=== PATIENT | male | born 1930 | race Caucasian/White ===

== ENCOUNTER → 2016-04-27 | Outpatient (CLI) | payer MEDICARE ==
[~2016-04-27] MED LIST: AUGM875 PO; CARI350T19 PO; CORTIS10A LEFT EAR; COUM1TAB PO; EZET10 PO; HYDR12.56 PO; KLOR20TA6 PO; LATA0.00 EACH EYE; NITR.3 SL; PRAV20TA67 PO; TIMO0.5S29 EACH EYE; VERA120T3 PO; WARF2.5 PO; Z.0.OXYGEN INH
== END ==
LOC: PLAB 10:09
PROVIDERS: ATTEND Family Medicine
DX: C61 Malignant neoplasm of prostate (principal)
CPT/HCPCS: 36415; 84153

== ENCOUNTER → 2016-09-27 | Outpatient (CLI) | payer MEDICARE ==
[2016-09-27 11:58] LABS: AUTOMATED NEUTROPHIL # 3.1 TH/MM3 (1.8-7.7); BASOPHIL % 0.6 % (0.0-2.0); EOSINOPHIL # 0.3 TH/MM3 (0-0.4); EOSINOPHIL % 4.8 % (0.0-4.0); HEMATOCRIT 41.6 % (39.0-51.0); HEMO FLAGS DIFF FINAL; LYMPH % 26.9 % (9.0-44.0); LYMPHOCYTE # 1.4 TH/MM3 (1.0-4.8); MEAN CELL VOLUME 100.4 FL (80.0-100.0); MEAN CORPUSCULAR HEMOGLOBIN 33.9 PG (27.0-34.0); MEAN CORPUSCULAR HGB CONC 33.8 % (32.0-36.0); MONO % 9.1 % (0.0-8.0); NEUT % 58.6 % (16.0-70.0); PLATELET COUNT 139 TH/MM3 (150-450); RED BLOOD COUNT 4.14 MIL/MM3 (4.50-5.90); RED CELL DISTRIBUTION WIDTH 15.5 % (11.6-17.2); WHITE BLOOD COUNT 5.3 TH/MM3 (4.0-11.0)
[2016-09-27 12:18] LABS: ANION GAP 6 MEQ/L (5-15); AST (GOT) 19 U/L (15-37); BICARBONATE 29.1 MEQ/L (21.0-32.0); BLOOD UREA NITROGEN 12 MG/DL (7-18); CHLORIDE 107 MEQ/L (98-107); GLOMERULAR FILTRATION RATE 97 ML/MIN (>89); GLUCOSE,FASTING 95 MG/DL (74-99); POTASSIUM 4.2 MEQ/L (3.5-5.1); SODIUM (NA) 142 MEQ/L (136-145)
[2016-09-27 12:31] LABS: ALKALINE PHOSPHATASE 67 U/L (45-117); ALT (GPT) 15 U/L (12-78); HDL CHOLESTEROL 74.4 MG/DL (40.0-60.0); LDL CHOLESTEROL 93 MG/DL (0-99); TOTAL BILIRUBIN ADULT 1.6 MG/DL (0.2-1.0)
[2016-09-27 17:20] LABS: HEMOGLOBIN A1a 0.9 %; HEMOGLOBIN A1b 1.2 %; HEMOGLOBIN Ao 86.8 %; HEMOGLOBIN F 0.3 %; HEMOGLOBIN LA1C 1.8 %; HEMOGLOBIN P3 3.4 %
== END ==
LOC: PLAB 09:38
PROVIDERS: ATTEND Family Medicine
DX: E78.5 Hyperlipidemia, unspecified (principal); R73.9 Hyperglycemia, unspecified
CPT/HCPCS: 36415; 80053; 80061; 83036; 84443; 85025

== ENCOUNTER → 2016-10-26 | Outpatient (CLI) | payer MEDICARE ==
[~2016-10-26] MED LIST changes: +JANT2.5T PO; +NITR0.4S SL; +PRAV20TA2 PO; +TIMO0.5S30 EACH EYE; +VITATAB43 PO
== END ==
LOC: PLAB 09:51
PROVIDERS: ATTEND Urology
DX: C61 Malignant neoplasm of prostate (principal)
CPT/HCPCS: 36415; 84153

== ENCOUNTER → 2016-10-28 | Outpatient (CLI) | payer MEDICARE | LOC: PHRSP 09:43 | PROVIDERS: ATTEND Internal Medicine | DX: R06.02 Shortness of breath (principal) | CPT/HCPCS: 94620 ==

== ENCOUNTER → 2016-11-02 | Outpatient (CLI) | payer MEDICARE ==
[2016-11-02 10:48] LABS: HEMATOCRIT 41.5 % (39.0-51.0); MEAN CELL VOLUME 100.2 FL (80.0-100.0); MEAN CORPUSCULAR HEMOGLOBIN 33.5 PG (27.0-34.0); MEAN CORPUSCULAR HGB CONC 33.4 % (32.0-36.0); PLATELET COUNT 142 TH/MM3 (150-450); RED BLOOD COUNT 4.14 MIL/MM3 (4.50-5.90); RED CELL DISTRIBUTION WIDTH 14.9 % (11.6-17.2); REVIEW FLAG FINAL; WHITE BLOOD COUNT 6.7 TH/MM3 (4.0-11.0)
[2016-11-02 10:55] LABS: APTT (PATIENT) 35.5 SEC (24.3-30.1); INTERNATIONAL NORMALIZED RATIO 1.8 RATIO; PROTHROMBIN TIME - PATIENT 20.3 SEC (9.8-11.6)
[2016-11-02 11:16] LABS: BICARBONATE 29.4 MEQ/L (21.0-32.0); POTASSIUM 4.2 MEQ/L (3.5-5.1)
--- NOTE | 2016-11-03 20:14 | EKG ---
Date Performed: 11/02/2016 Time Performed: 09:58:39 PTAGE: 86 years EKG: ATRIAL FIBRILLATION WITH ABERRANT CONDUCTION OR VENTRICULAR PREMATURE COMPLEXES RIGHT BUNDL E BRANCH BLOCK LEFT ANTERIOR FASCICULAR BLOCK ABNORMAL ECG Compared to prior tracing no significant c nilson DOCTOR: Kerline Elliott Interpretating Date/Time 11/03/2016 20:13:59
== END ==
LOC: CPRE 09:27
PROVIDERS: ATTEND Internal Medicine
DX: Z01.812 Encounter for preprocedural laboratory examination (principal); Z01.810 Encounter for preprocedural cardiovascular examination; R04.2 Hemoptysis; I48.91 Unspecified atrial fibrillation
CPT/HCPCS: 36415; 80048; 85027; 85610; 85730; 93005

== ENCOUNTER → 2016-11-04 | Outpatient (CLI) | payer MEDICARE ==
[2016-11-04 07:33] LABS: APTT (PATIENT) 31.7 SEC (24.3-30.1); INTERNATIONAL NORMALIZED RATIO 1.3 RATIO; PROTHROMBIN TIME - PATIENT 14.7 SEC (9.8-11.6)
== END ==
LOC: PLAB 07:01 → HSDC 10:37
PROVIDERS: ATTEND Internal Medicine
DX: R04.2 Hemoptysis (principal)
CPT/HCPCS: 36415; 85610; 85730

== ENCOUNTER → 2016-11-04 | Day surgery (SDC) | payer MEDICARE ==
--- NOTE | 2016-10-28 15:17 | MH ---
cc: UMA WEI M.D., R. STEVEN M.D. KLANCKE, KIM A. M.D. DATE OF ADMISSION: 11/04/2016 REASON FOR ADMISSION Outpatient bronchoscopy, being scheduled. HISTORY OF PRESENT ILLNESS Mr. Saeed is an 86-year-old white male who has had scant intermittent hemoptysis over several months. He had a scan in September of last year at [facility] which was unremarkable. There was a very small left effusion and some evidence of underlying emphysema but no other significant pathology thought to be related to hemoptysis. He has been monitored over that period of time and has continued to have intermittent blood streaking in the sputum. In light of the persistence a follow-up scan was done October 14 which revealed some mild interstitial scarring in both the right mid lung and lingula extending down into the left lower lobe or peripheral lingula. It appears to be a chronic type of consolidation, possibly seen on an abdominal film of 2011. No mediastinal adenopathy is noted, evidence of prior CABG and no evidence of pleural effusion. Because of the persistence of hemoptysis and this abnormal finding, the patient is referred for further evaluation. He was a former smoker of 2-3 packs per day. He quit smoking in 1982 and has really had no pulmonary issues since then. He denies shortness of breath, change in cough, chest pain, fever or purulent sputum. No history of recurrent pneumonias. PAST MEDICAL HISTORY The past medical history is remarkable for colon cancer, initially in 1999 and recurred in 2006 at which time he had a complete colectomy with reanastomosis to the rectum. No colostomy. There has been no evidence of recurrence since then. He also had prostate cancer treated with cryosurgery in 2013 that is followed by Dr. Rodas without evidence of recurrence. Also followed regularly by Dr. Black for a bypass that he had in 1985, also chronic atrial fibrillation. He is on warfarin. History of obstructive sleep apnea. He uses a CPAP. He has an abdominal aortic aneurysm which is followed by Dr. Rivero annually. ALLERGIES 1. QUINIDINE WHICH CAUSED ARRHYTHMIA. 2. REGLAN WHICH CAUSED CONFUSION. MEDICATIONS 1. Timolol eye drops. 2. Warfarin. 3. Pravastatin. 4. Multiple vitamin. FAMILY HISTORY Father of complications of a thoracic aneurysm in his 90s. Mother had metastatic breast cancer. Five children. One daughter with MS. MARRERO HISTORY , living with his second now of 40 years who accompanied him today. 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 Originally from [place] but lived in this area since 1969 and is fully retired. Smoking noted above. Drinks an ounce or two of alcohol per day. REVIEW OF SYSTEMS Weight has been stable. He does have wide angle glaucoma. No chest pain at all. Minimal chronic edema particularly in the left leg where the saphenous vein was harvested. No history of thromboembolic disease. No current GI symptoms, although he has had C. difficile in the past. Generalized aches and pains consistent with degenerative arthritis at his age of 86. PHYSICAL EXAMINATION Blood pressure 118/60, pulse 96, temperature 96, respiratory rate 18, sat 98% in room air. HEENT: Sclera anicteric. Pharynx is clear. NECK: Neck veins are flat. No palpable adenopathy in the neck or supraclavicular region. CHEST: Clear. No basilar rales. No wheezes or congestion. HEART: Irregular heart rhythm. No audible S3. No harsh murmur. ABDOMEN: Soft. EXTREMITIES: 1+ peripheral edema, a little more on the left than the right. No calf tenderness. No cyanosis or clubbing. IMAGING CT scan is reviewed with he and his and there is a notable consolidation in the periphery of the left lung either in the lingula were the lateral segment of the left lower lobe with no effusion. DISCUSSION Mr. Saeed presents with intermittent hemoptysis over the course of months, now with some consolidation in the left lung. In light of the prior smoking history and prior cancers we need to proceed with a diagnostic procedure and I have reviewed the options with him today. After thoroughly reviewing this he is agreeable to proceed with a diagnostic bronchoscopy, recognizing that it may not provide a definitive answer but is certainly a reasonable first step. There are risks involved which he is aware of now, including although not limited to anesthetic complications, bleeding or pneumothorax. Will also need to interrupt his Coumadin. We are getting clearance for that from Dr. Black, but there is a risk of stroke in this setting when anticoagulation has to be discontinued. The other option that I presented was follow-up scans, however, in light of the new findings and again the fairly high risk in light of the prior history of malignancy, he would prefer to proceed and is agreeable to the bronchoscopy. I will schedule him for pulmonary functions. Will obtain clearance from Dr. Black for interrupting the Coumadin and anything other from a cardiovascular standpoint to address prior to the procedure. He knows he can call if the hemoptysis worsens prior to proceeding, although that has really been very stable for quite a few months. Further diagnostic and/or therapeutic intervention will depend on the results of these initial diagnostic studies and his ongoing clinical course. R. MD WINSTON Alvarado/AZAR /11:14 AM /3:12 PM
[~2016-11-04] MED LIST changes: +*RESP: ALBUTEROL 2.5 MG/3 ML NEB (PRN) PERIprocedural Use ONLY NEB ONE; -AUGM875 PO; -CARI350T19 PO; +CHLORHEXIDINE GLUCONATE 2 % 1 PACK (2 CLOTHS) TOPICAL PRN; -CORTIS10A LEFT EAR; -COUM1TAB PO; +DO NOT ADM ANY ANTICOAGULANT DRUGS PRN; +EPINEPHrine HCL (1:1000) 1 MG/ML VIAL ONE; -EZET10 PO; -HYDR12.56 PO; +INSULIN HUMAN REGULAR 1,000 UNITS/10 ML VIAL SQ PRN; -KLOR20TA6 PO; +LACTATED RINGER'S 1000 ML IV PRN; -LATA0.00 EACH EYE; +LIDOCAINE HCL 2% 50 ML VIAL ONE; +LIDOCAINE HCL 4% PF 5 ML AMP ONE; +LIDOCAINE VISCOUS 2% SOLN 15 ML UDC ONE; +METOPROLOL TARTRATE 25 MG TAB PO PRN; -NITR.3 SL; +POVIDONE IODINE 5% (ANTISEPSIS KIT) 4 APPLICATIONS EACH NARE PRN; -PRAV20TA67 PO; +PROPOFOL 200 MG/20 ML AMP IV ONE; +RESP: ALBUTEROL 2.5 MG/3 ML NEB (SCH) INH; +RESP: ALBUTEROL 2.5 MG/IPRATROPIUM 0.5 MG NEB (PRN) NEB; +RESP: LIDOCAINE HCL 4% PF 5 ML NEB NEB SCH; +SODIUM CHLORID 0.9% 500 ML IV PRN; -TIMO0.5S29 EACH EYE; -VERA120T3 PO; -WARF2.5 PO; -Z.0.OXYGEN INH
[2016-11-04 15:35] VITALS: BP 108/69; PULSE 78; RESP 18; TEMP 97.5; O2SAT 97
--- NOTE | 2016-11-06 14:53 | MR ---
cc: UMA WEI R. STEVEN DATE: 11/04/2016. PROCEDURE PERFORMED: Bronchoscopy. INDICATIONS FOR THE PROCEDURE: Hemoptysis. DESCRIPTION OF THE PROCEDURE IN DETAIL: After informed consent was obtained, the patient underwent diagnostic bronchoscopy with LMA anesthesia. Examination of the larynx was unremarkable. Examination of the trachea down to the level of the mainstem bronchi was unremarkable. Examination of the right main stem bronchus, right upper, middle and lower lobe orifices was entirely unremarkable with no endobronchial pathology and no significant secretions. Examination of the left main stem bronchus revealed some scattered bloody secretions that were easily aspirated. Further examination was normal down to the takeoff of the left upper lobe and the left upper lobe and lingula were normal with some minimal scattered secretions. The left lower lobe was filled with bloody secretions but again those were easily aspirated. Careful examination of the superior segment and all segments of the lower lobe were normal. No endobronchial pathology. No obvious obstruction. The left lower lobe was lavaged repeatedly. Two specimens were sent for cytology and other specimens sent for cultures. Each of the subsegments of the lower lobe were then brushed, particularly the posterior and lateral segments were the infiltrative density appeared to be and this brush was sent for cytology. SUMMARY: In summary, there are some bloody secretions in the left lower lobe. No other endobronchial pathology. Multiple specimens were submitted, cultures and brushings for cytology and cultures. He tolerated the procedure well without apparent complications. He is being prepared for transport to recovery. MD WINSTON Jane/KUMAR /1:18 PM /2:39 PM
== END | disposition home or self-care (01) ==
LOC: HEND 11:33
PROVIDERS: ATTEND Internal Medicine
DX: C34.32 Malignant neoplasm of lower lobe, left bronchus or lung (principal); R04.2 Hemoptysis
CPT/HCPCS: 00520; 31623; 36415; 85610; 85730; 87015; 87070; 87102; 87116; 87205; 87206; 88112; 88305; 94640; 94664; J3010; J7120; J7613; 94150; J0171

== ENCOUNTER → 2016-12-08 | Outpatient (CLI) | payer MEDICARE ==
[~2016-12-08] MED LIST changes: -*RESP: ALBUTEROL 2.5 MG/3 ML NEB (PRN) PERIprocedural Use ONLY NEB ONE; -CHLORHEXIDINE GLUCONATE 2 % 1 PACK (2 CLOTHS) TOPICAL PRN; -DO NOT ADM ANY ANTICOAGULANT DRUGS PRN; -EPINEPHrine HCL (1:1000) 1 MG/ML VIAL ONE; -INSULIN HUMAN REGULAR 1,000 UNITS/10 ML VIAL SQ PRN; -LACTATED RINGER'S 1000 ML IV PRN; -LIDOCAINE HCL 2% 50 ML VIAL ONE; -LIDOCAINE HCL 4% PF 5 ML AMP ONE; -LIDOCAINE VISCOUS 2% SOLN 15 ML UDC ONE; -METOPROLOL TARTRATE 25 MG TAB PO PRN; -POVIDONE IODINE 5% (ANTISEPSIS KIT) 4 APPLICATIONS EACH NARE PRN; -PROPOFOL 200 MG/20 ML AMP IV ONE; -RESP: ALBUTEROL 2.5 MG/3 ML NEB (SCH) INH; -RESP: ALBUTEROL 2.5 MG/IPRATROPIUM 0.5 MG NEB (PRN) NEB; -RESP: LIDOCAINE HCL 4% PF 5 ML NEB NEB SCH; -SODIUM CHLORID 0.9% 500 ML IV PRN
--- NOTE | 2016-12-17 09:47 | RSPPFT ---
DATE OF PROCEDURE: 12/08/16 COMMENTS: VOLUMES DYNAMIC: FVC and FEV1 mildly reduced. STATIC: TLC mildly reduced; FRC and RV normal. FLOWS: FEV1% mildly reduced; FEF 25-75 severely reduced. DIFFUSION: Moderately reduced. FLOW VOLUME LOOP: Combined mild restrictive and moderate obstructive ventilatory defect. IMPRESSION: Combined mild obstructive and mild restrictive ventilatory defect with hyperinflation and a mild reduction in diffusion. Airways resistance is increased. There is no significant improvement post-bronchodilator.
== END ==
LOC: PHRSP 07:36
PROVIDERS: ATTEND Internal Medicine
DX: J44.9 Chronic obstructive pulmonary disease, unspecified (principal)
CPT/HCPCS: 94060; 94620; 94726; 94729

== ENCOUNTER → 2017-04-05 | Outpatient (CLI) | payer MEDICARE ==
[2017-04-05 13:09] LABS: AUTOMATED NEUTROPHIL # 3.4 TH/MM3 (1.8-7.7); BASOPHIL % 0.3 % (0.0-2.0); EOSINOPHIL # 0.2 TH/MM3 (0-0.4); EOSINOPHIL % 3.4 % (0.0-4.0); HEMATOCRIT 41.8 % (39.0-51.0); HEMOGLOBIN 14.1 GM/DL (13.0-17.0); LYMPH % 18.8 % (9.0-44.0); LYMPHOCYTE # 0.9 TH/MM3 (1.0-4.8); MEAN CELL VOLUME 99.4 FL (80.0-100.0); MEAN CORPUSCULAR HEMOGLOBIN 33.6 PG (27.0-34.0); MEAN CORPUSCULAR HGB CONC 33.8 % (32.0-36.0); MEAN PLATELET VOLUME 9.3 FL (7.0-11.0); MONO % 9.7 % (0.0-8.0); MONOCYTE # 0.5 TH/MM3 (0-0.9); NEUT % 67.8 % (16.0-70.0); PLATELET COUNT 131 TH/MM3 (150-450); RED BLOOD COUNT 4.21 MIL/MM3 (4.50-5.90); RED CELL DISTRIBUTION WIDTH 15.3 % (11.6-17.2)
[2017-04-05 13:34] LABS: ALBUMIN 3.5 GM/DL (3.4-5.0); AST (GOT) 15 U/L (15-37); BICARBONATE 31.5 MEQ/L (21.0-32.0); BLOOD UREA NITROGEN 13 MG/DL (7-18); CALCIUM 8.9 MG/DL (8.5-10.1); CHLORIDE 103 MEQ/L (98-107); CHOLESTEROL 156 MG/DL (120-200); CREATININE 0.74 MG/DL (0.60-1.30); GLOMERULAR FILTRATION RATE 100 ML/MIN (>89); GLUCOSE,FASTING 108 MG/DL (74-99); SODIUM (NA) 139 MEQ/L (136-145); TRIGLYCERIDES 69 MG/DL (42-150)
[2017-04-05 14:01] LABS: ALKALINE PHOSPHATASE 85 U/L (45-117); ALT (GPT) 15 U/L (12-78); CHOLESTEROL/ HDL RATIO 2.17 RATIO; FERRITIN 125 NG/ML (26-388); HDL CHOLESTEROL 71.6 MG/DL (40.0-60.0); LDL CHOLESTEROL 71 MG/DL (0-99); TOTAL BILIRUBIN ADULT 1.6 MG/DL (0.2-1.0); TOTAL PROTEIN 6.6 GM/DL (6.4-8.2)
== END ==
LOC: PLAB 11:23
PROVIDERS: ATTEND Family Medicine
DX: R04.2 Hemoptysis (principal); E78.5 Hyperlipidemia, unspecified; D64.9 Anemia, unspecified
CPT/HCPCS: 36415; 80053; 80061; 82607; 82728; 85025

== ENCOUNTER → 2017-05-11 | Outpatient (CLI) | payer MEDICARE ==
[2017-05-11 16:25] LABS: AUTOMATED NEUTROPHIL # 4.2 TH/MM3 (1.8-7.7); BASOPHIL % 0.5 % (0.0-2.0); EOSINOPHIL # 0.1 TH/MM3 (0-0.4); EOSINOPHIL % 2.2 % (0.0-4.0); HEMATOCRIT 40.7 % (39.0-51.0); HEMOGLOBIN 14.1 GM/DL (13.0-17.0); LYMPH % 14.5 % (9.0-44.0); LYMPHOCYTE # 0.8 TH/MM3 (1.0-4.8); MEAN CELL VOLUME 98.6 FL (80.0-100.0); MEAN CORPUSCULAR HEMOGLOBIN 34.2 PG (27.0-34.0); MEAN CORPUSCULAR HGB CONC 34.7 % (32.0-36.0); MEAN PLATELET VOLUME 9.2 FL (7.0-11.0); MONO % 7.7 % (0.0-8.0); MONOCYTE # 0.4 TH/MM3 (0-0.9); NEUT % 75.1 % (16.0-70.0); PLATELET COUNT 141 TH/MM3 (150-450); RED BLOOD COUNT 4.13 MIL/MM3 (4.50-5.90); RED CELL DISTRIBUTION WIDTH 15.2 % (11.6-17.2); WHITE BLOOD COUNT 5.5 TH/MM3 (4.0-11.0)
[2017-05-11 16:29] LABS: ALBUMIN 3.4 GM/DL (3.4-5.0); ALT (GPT) 13 U/L (12-78); AST (GOT) 17 U/L (15-37); BICARBONATE 30.4 MEQ/L (21.0-32.0); BLOOD UREA NITROGEN 15 MG/DL (7-18); CHLORIDE 108 MEQ/L (98-107); CHOLESTEROL 153 MG/DL (120-200); CREATININE 0.75 MG/DL (0.60-1.30); GLOMERULAR FILTRATION RATE 98 ML/MIN (>89); GLUCOSE,FASTING 101 MG/DL (74-99); SODIUM (NA) 143 MEQ/L (136-145); TRIGLYCERIDES 65 MG/DL (42-150)
[2017-05-11 16:55] LABS: ALKALINE PHOSPHATASE 98 U/L (45-117); CHOLESTEROL/ HDL RATIO 2.43 RATIO; HDL CHOLESTEROL 62.9 MG/DL (40.0-60.0); LDL CHOLESTEROL 77 MG/DL (0-99); TOTAL BILIRUBIN ADULT 1.3 MG/DL (0.2-1.0)
[2017-05-11 20:23] LABS: HEMOGLOBIN A1C 5.7 % (4.3-6.0)
== END ==
LOC: PLAB 11:14
PROVIDERS: ATTEND Family Medicine
DX: R73.9 Hyperglycemia, unspecified (principal); D69.6 Thrombocytopenia, unspecified
CPT/HCPCS: 36415; 80053; 80061; 82607; 83036; 85025

== ENCOUNTER → 2017-05-16 | Outpatient (CLI) | payer MEDICARE | LOC: PLAB 15:11 | PROVIDERS: ATTEND Urology | DX: Z85.46 Personal history of malignant neoplasm of prostate (principal) | CPT/HCPCS: 84153 ==